=== PATIENT | female | born 1975 | race African-American/Black ===

== ENCOUNTER 2016-05-07 15:57 | Outpatient (CLI) | payer OTHER ==
[2016-05-07 16:47] LABS: ALT (SGPT) 13 U/L (0-55); AST (SGOT) 13 U/L (5-34); Alkaline Phosphatase 68 U/L (40-150); Anion Gap 12 mmol/L (10-20); BUN (Urea Nitrogen) 12 mg/dL (7.0-18.7); Bilirubin, Total 0.1 mg/dL (0.2-1.2); Calc. Creatinine Clearance 0 mL/min (70-130); Calcium 9.2 mg/dL (7.8-10.44); Carbon Dioxide 24 mmol/L (22-29); Chloride 107 mmol/L (98-107); Estimated GFR-MDRD 89; Globulin 3.5 g/dL (2.4-3.5); Protein, Total 7.5 g/dL (6.0-8.3)
[2016-05-07 20:34] LABS: #Basophils 0.1 thou/uL (0.0-0.2); #Eosinphils 0.3 thou/uL (0.0-0.7); #Lymphocytes 2.2 thou/uL (1.20-3.40); #Monocytes 0.7 thou/uL (0.11-0.59); #Neutrophils 3.2 thou/uL (1.40-6.50); %Basophils 1.1 % (0.0-1.0); %Eosinophils 5.2 % (0.0-10.0); %Monocytes 10.4 % (0.0-10.0); Hematocrit 36.6 % (36.0-47.0); Mean Platelet Volume 7.5 fL (7.4-10.4); Red Blood Cell (RBC) Count 4.15 mill/uL (4.20-5.40); White Blood Cell (WBC) Count 6.5 thou/uL (4.8-10.8)
== END 2016-05-07 15:58 | disposition home or self-care (01) ==
LOC: HPCALD 15:57
PROVIDERS: ATTEND Family Medicine
DX: R00.2 Palpitations (principal); I10 Essential (primary) hypertension
CPT/HCPCS: 36415; 80053; 84443; 85025

== ENCOUNTER 2017-10-11 08:47 | Emergency (ER) | payer OTHER ==
--- NOTE | 2017-10-11 12:54 | RAD ---
RIGHT FIFTH FINGER: 10/11/2017 FINDINGS: Three views show a fracture of the middle phalanx that appears acute. there is slight separation of the avulsion fragment. The joints appear intact. IMPRESSION: Middle phalanx fracture. POS: HOME
== END 2017-10-11 09:36 | disposition home or self-care (01) ==
LOC: BURERS 08:47
DX: S63.636A Sprain of interphalangeal joint of right little finger, initial encounter (principal); I10 Essential (primary) hypertension; G43.909 Migraine, unspecified, not intractable, without status migrainosus; Z79.899 Other long term (current) drug therapy; W22.8XXA Striking against or struck by other objects, initial encounter

== ENCOUNTER 2020-02-11 15:06 | Outpatient (CLI) | payer OTHER ==
--- NOTE | 2020-02-11 16:06 | RAD ---
LUMBAR SPIE RADIOGRAPHS THREE VIEWS: 02/11/20 PROVIDED CLINICAL HISTORY: Back pain. FINDINGS: There is left convexity curvature of the lumbar spine and partially visualized right convexity curvat ure of the thoracic spine. Sagittal lumbar alignment appears normal. Vertebral body heights and inter vertebral disc space heights appear preserved. Lower lumbar spine facet arthrosis. Pedicles appear in tact. No fracture or other acute osseous abnormality is evident. IMPRESSION: Thoracolumbar scoliosis and lower lumbar degenerative change. POS: [facility]
== END 2020-02-11 15:07 | disposition home or self-care (01) ==
LOC: BURRAD 15:06
PROVIDERS: ATTEND Family Medicine
DX: M54.5 Low back pain (principal); M41.9 Scoliosis, unspecified; M47.816 Spondylosis without myelopathy or radiculopathy, lumbar region
CPT/HCPCS: 72100